=== PATIENT | male | born 1960 | race African-American/Black ===

== ENCOUNTER 2017-01-18 10:54 | Emergency (ER) | payer MEDICARE ==
[2017-01-18 11:22] LABS: #Basophils 0.1 thou/uL (0.0-0.2); #Eosinphils 0.6 thou/uL (0.0-0.7); #Lymphocytes 1.4 thou/uL (1.20-3.40); #Monocytes 0.6 thou/uL (0.11-0.59); #Neutrophils 3.7 thou/uL (1.40-6.50); %Basophils 2.1 % (0.0-1.0); %Eosinophils 8.6 % (0.0-10.0); %Monocytes 9.9 % (0.0-10.0); Hematocrit 39.2 % (42.0-52.0); Mean Platelet Volume 8.9 fL (7.4-10.4); Red Blood Cell (RBC) Count 4.31 mill/uL (4.70-6.10); White Blood Cell (WBC) Count 6.4 thou/uL (4.8-10.8)
[2017-01-18 11:41] LABS: ALT (SGPT) 12 U/L (8-55); AST (SGOT) 11 U/L (5-34); Alkaline Phosphatase 52 U/L (40-150); Anion Gap 15 mmol/L (10-20); BUN (Urea Nitrogen) 40 mg/dL (8.4-25.7); Bilirubin, Total 0.5 mg/dL (0.2-1.2); Calc. Creatinine Clearance 0 mL/min (70-130); Calcium 9.9 mg/dL (7.8-10.44); Carbon Dioxide 32 mmol/L (22-29); Chloride 95 mmol/L (98-107); Estimated GFR-MDRD 6; Globulin 4.8 g/dL (2.4-3.5); Protein, Total 8.9 g/dL (6.0-8.3)
--- NOTE | 2017-01-18 13:15 | CT ---
CT ABDOMEN AND PELVIS WITHOUT CONTRAST STONE PROTOCOL: HISTORY: Diffuse abdominal pain. On dialysis. COMPARISON: CT stone protocol from 2016. FINDINGS: The lung bases appear clear. Heart size is enlarged. Moderate-volume pericardial effusion. There is extensive atherosclerotic disease of the aorta as well as medial calcinosis of the visceral arteries. The kidneys are atrophic bilaterally. Small layering free fluid in the pelvis. The appendix is visualized and appears normal. No dilated loops of large or small bowel. Skeleton unremarkable. No nephrouretherol lithiasis or hydroureteral nephrosis. No significant evidence of recently passed stone. IMPRESSION: 1. No nephroureteral lithiasis or hydroureteral nephrosis. No secondary evidence of recently passe d stone. 2. Cardiomegaly with small pericardial effusion. 3. Small volume free fluid in the pelvis, likely sequelae of chronic volume overload. 4. Extensive arterial medial sclerosis from chronic renal failure. POS: ZE
== END 2017-01-18 13:31 | disposition home or self-care (01) ==
LOC: ERS 10:54 → EDSEX 10:54 → ERS 13:31
DX: K85.90 Acute pancreatitis without necrosis or infection, unspecified (principal); B20 Human immunodeficiency virus [HIV] disease; I10 Essential (primary) hypertension; Z99.2 Dependence on renal dialysis; Z79.82 Long term (current) use of aspirin; Z79.899 Other long term (current) drug therapy
CPT/HCPCS: 74176; 80053; 83690; 85025; 96372

== ENCOUNTER 2017-03-02 04:21 | Emergency (ER) | payer MEDICARE ==
--- NOTE | 2017-03-02 10:02 | RAD ---
PORTABLE CHEST: HISTORY: Cough and congestion. COMPARISON: 11/27/16 study. FINDINGS: Heart size is enlarged. There are atherosclerotic changes of the aorta. The lungs are clear of infi ltrates. No signs of failure. IMPRESSION: Marked cardiomegaly. POS: LISA
== END 2017-03-02 08:22 | disposition home or self-care (01) ==
LOC: ERS 04:21
DX: B34.9 Viral infection, unspecified (principal); I10 Essential (primary) hypertension; B20 Human immunodeficiency virus [HIV] disease; F17.210 Nicotine dependence, cigarettes, uncomplicated
CPT/HCPCS: 71010; 87081; 87430